=== PATIENT | female | born 1960 | race Caucasian/White ===

== ENCOUNTER 2016-11-08 13:16 | Observation (INO) | payer BC ==
[~2016-11-08] VITALS: Ht 165.1 cm; Wt 91.2 kg
--- NOTE | 2016-11-08 13:51 | EMERGENCY ROOM VISIT NOTE ---
History Report prepared by Ger: Delmar Hutchins Under the Supervision of: Dr. Jerald Whelan M.D. First contact with patient: 13:35 Chief Complaint: CHEST PAIN Stated Complaint: CHEST PAIN, HIGH BLOOD PRESSURE, REFERRED BY DOC Nursing Triage Summary: pt states she began having midsternal to epigastric pain on friday the pain has been intermittent today she notes increased burping with the pain notes no exacerbating factors or relieving factors ate today around 1100, pain was not worse after eating History of Present Illness The patient is a 56 year old female who presents to the Emergency Room with complaints of episodes of chest pain that started 4 days ago. She came here today after her second episode of chest pain. Her first episode was 4 days ago, and the pain is described as dull in the mid-chest, that radiates to her right shoulder and somewhat to her back. Currently, she says the pain is a 3 or 4 out of 10. She says the pain does not change with position. Yesterday, her face became more flushed and she had worsening hiccups. She denies any nausea or vomiting. The patient has hypertension and a history of migraines. She came in today after talking to a friend, and realizing that her condition is worse than she thought. She is allergic to Aspirin. The patient has no previous heart or lung issues. She does not drink alcohol and she does not smoke. The patient has had no recent surgeries. Source of History: patient Onset: 4 days ago Position: chest Quality: dull Timing: other (episodes) Associated Symptoms: + back pain, No nausea, No vomiting Note: Associated symptoms: Pain radiates to right shoulder. Face became more flushed yesterday and had worsening hiccups. Review of Systems See HPI for pertinent positives & negatives. A total of 10 systems reviewed and were otherwise negative. Past Medical & Surgical Medical Problems: (1) Hypertension Family History Diabetes mellitus FHx: cancer FHx: heart disease Social History Smoking Status: Never Smoker Alcohol Use: none Marital Status: Housing Status: lives with family Occupation Status: employed Current/Historical Medications Scheduled Losartan Potassium & Hydrochlo (Hyzaar), 1 TAB PO DAILY Nortriptyline (Pamelor), 20 MG PO HS Scheduled PRN Meloxicam (Meloxicam), 15 MG PO DAILY PRN for Pain Metoclopramide Hcl (Reglan), 5 MG PO DAILY PRN for PRN Allergies Coded Allergies: Aspirin (Verified Allergy, Unknown, 11/08/16) Physical Exam Vital Signs Date Time Temp Pulse Resp B/P Pulse Ox O2 Delivery O2 Flow Rate FiO2 11/08/16 16:21 96 18 143/86 96 Nasal Cannula 2.0 11/08/16 14:50 86 16 148/93 95 Nasal Cannula 2.0 11/08/16 14:33 88 Nasal Cannula 2.0 11/08/16 14:16 96 16 149/97 95 Room Air 11/08/16 14:11 96 18 188/96 94 Room Air 11/08/16 14:04 91 20 173/106 95 Room Air 11/08/16 13:46 96 11/08/16 13:39 96 Room Air 11/08/16 13:33 95 Room Air 11/08/16 13:24 36.8 92 18 206/122 98 Room Air Physical Exam GENERAL: Patient is anxious appearing and in no acute distress. HEENT: No acute trauma, normocephalic atraumatic, mucous membranes moist, no nasal congestion, no scleral icterus. NECK: No stridor, no adenopathy, no meningismus, trachea is midline. LUNGS: No dyspnea. Clear to auscultation and equal bilaterally. No wheeze, no rhonchi. HEART: Regular rate and rhythm. No murmurs, rubs, gallops appreciated. ABDOMEN: Soft, nontender, bowel sounds positive, no masses appreciated, no peritonitis. BACK: No midline tenderness, no CVA tenderness EXTREMITIES: Normal motion all extremities, no cyanosis, no edema. 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 SKIN: No rash, no jaundice, no diaphoresis. Medical Decision & Procedures ER Provider Diagnostic Interpretation: X ray results are stated below per my interpretation and the radiologist's interpretation. CHEST ONE VIEW PORTABLE HISTORY: Atypical Chest Pain COMPARISON: None. FINDINGS: There are low lung volumes. No pleural effusions. No pneumothorax. The heart is normal in size. Bibasilar linear densities, left greater than right. IMPRESSION: Low lung volumes with bibasilar linear densities left greater than right. This could represent atelectasis or pneumonia. Electronically signed by: Gilbert Burgess M.D. 11/08/2016 3:01 PM Dictated Date/Time: 11/08/2016 3:00 PM Laboratory Results 11/08/16 13:45 Red Blood Count 4.94, Mean Corpuscular Volume 82.0, Mean Corpuscular Hemoglobin 27.3, Mean Corpuscular Hemoglobin Concent 33.3, Mean Platelet Volume 10.5, Neutrophils (%) (Auto) 65.6, Lymphocytes (%) (Auto) 22.6, Monocytes (%) (Auto) 9.1, Eosinophils (%) (Auto) 2.0, Basophils (%) (Auto) 0.5, Neutrophils # (Auto) 3.89, Lymphocytes # (Auto) 1.34, Monocytes # (Auto) 0.54, Eosinophils # (Auto) 0.12, Basophils # (Auto) 0.03 11/08/16 13:45 Test 11/08/16 13:45 White Blood Count 5.93 K/uL (4.8-10.8) Red Blood Count 4.94 M/uL (4.2-5.4) Hemoglobin 13.5 g/dL (12.0-16.0) Hematocrit 40.5 % (37-47) Mean Corpuscular Volume 82.0 fL (80-100) Mean Corpuscular Hemoglobin 27.3 pg (25-34) Mean Corpuscular Hemoglobin Concent 33.3 g/dl (32-36) Platelet Count 206 K/uL (130-400) Mean Platelet Volume 10.5 fL (7.4-10.4) Neutrophils (%) (Auto) 65.6 % Lymphocytes (%) (Auto) 22.6 % Monocytes (%) (Auto) 9.1 % Eosinophils (%) (Auto) 2.0 % Basophils (%) (Auto) 0.5 % Neutrophils # (Auto) 3.89 K/uL (1.4-6.5) Lymphocytes # (Auto) 1.34 K/uL (1.2-3.4) Monocytes # (Auto) 0.54 K/uL (0.11-0.59) Eosinophils # (Auto) 0.12 K/uL (0-0.5) Basophils # (Auto) 0.03 K/uL (0-0.2) RDW Standard Deviation 39.6 fL (36.4-46.3) RDW Coefficient of Variation 13.2 % (11.5-14.5) Immature Granulocyte % (Auto) 0.2 % Immature Granulocyte # (Auto) 0.01 K/uL (0.00-0.02) Anion Gap 8.0 mmol/L (3-11) Est Creatinine Clear Calc Drug Dose 76.7 ml/min Estimated GFR () 77.2 Estimated GFR (Non- 66.6 BUN/Creatinine Ratio 28.3 (10-20) Calcium Level 9.1 mg/dl (8.5-10.1) Total Bilirubin 0.3 mg/dl (0.2-1) Direct Bilirubin < 0.1 mg/dl (0-0.2) Aspartate Amino Transf (AST/SGOT) 18 U/L (15-37) Alanine Aminotransferase (ALT/SGPT) 28 U/L (12-78) Alkaline Phosphatase 77 U/L (45-117) Total Creatine Kinase 76 U/L (26-192) Creatine Kinase MB 0.6 ng/ml (0.5-3.6) Creatine Kinase MB Ratio 0.8 (0-3.0) Troponin I < 0.015 ng/ml (0-0.045) Total Protein 7.6 gm/dl (6.4-8.2) Albumin 3.7 gm/dl (3.4-5.0) Lipase 175 U/L (73-393) Laboratory results as reviewed by me. Medications Administered Medications (Trade) Dose Ordered Sig/Di Route Start Time Stop Time Status Last Admin Dose Admin Nitroglycerin (Nitrostat Tab) 0.4 mg NOW STAT SL 11/08/16 14:05 11/08/16 14:07 DC 11/08/16 14:11 0.4 MG Fentanyl Citrate (Fentanyl Inj) 75 mcg NOW STAT IV 11/08/16 14:17 11/08/16 14:18 DC 11/08/16 14:22 75 MCG ECG Indication: chest pain Rate (beats per minute): 100 Rhythm: normal sinus Findings: no acute ischemic change, no ectopy ED Course 1409: The patient was evaluated in room B11B. A complete history and physical exam was performed. 1405: Ordered Nitrostat Tab 0.4 mg SL. 1415: Ordered Nitrostat Tab 0.4 mg SL PRN. 1417: Ordered Fentanyl Inj 75 mcg IV. 1419: I reevaluated the patient and she got 1 nitro. She has a severe headache now. 1510: I reevaluated the patient and I gave her the option of being seen in the hospital or doing a repeat troponin, and she would like to have the repeat troponin and if normal, would like to go home. I discussed the pros and cons with her and she is aware. She notes that her chest pain is gone after the IV Fentanyl. 1624: I reevaluated the patient and she is resting comfortably. The patient verbally expressed understanding and agreement of the treatment plan. The patient will be evaluated for further treatment. 1625: I discussed the patient with Dr. Talita Alexis radiotelegraph operator servicer - he will evaluate the patient for further treatment. Medical Decision Differential: Cardiac Ischemia (STEMI, NSTEMI, Unstable Angina, etc), Aortic Dissection, Arrhythmia, Pulmonary Embolism, Pneumonia, Pneumothorax, MSK, Infectious, Pericarditis/Myocarditis, Esophageal Rupture, Gastrointestinal, amongst other pathologies entertained. 56 yr old female with substernal chest pressure radiating to right shoulder. Unclear if SLNTG or Fentanyl (for ntg headache) resolved CP though now CP free. Allergic to ASA. Initial EKG and Trop unremarkable. Repeat trop still wnl though now not zero. Given this will need to bring in hospital for further evaluation and monitoring. She is pain free. No evidence of PE/dissection. Consults Time Called: 1619 Consulting Physician: Dr. Talita Alexis radiotelegraph operator servicer Returned Call: [phone] I discussed the patient with Dr. Talita Alexis radiotelegraph operator servicer - he will evaluate the patient for further treatment. Impression Primary Impression: Right-sided chest pain Additional Impressions: Substernal precordial chest pain Headache Scribe Attestation The scribe's documentation has been prepared under my direction and personally reviewed by me in its entirety. I confirm that the note above accurately reflects all work, treatment, procedures, and medical decision making performed by me. Departure Information Dispostion Being Evaluated By Hospitalist Patient Instructions Chest Pain - [facility], [facility] Additional Instructions You must follow up with your primary provider on Friday or Friday to discuss further evaluation and treatment. Problem Qualifiers Additional Impressions: Headache Headache type: unspecified Headache chronicity pattern: acute headache Intractability: not intractable Qualified Codes: R51 - Headache
[2016-11-08] MEDS ORDERED: NITROGLYCERIN 0.4 MG SL PER TAB CHARGE SL STA (14:05)
[2016-11-08] MEDS ORDERED: NITROGLYCERIN 0.4 MG SL PER TAB CHARGE SL PRN ×2 (14:15→18:00)
[2016-11-08] MEDS ORDERED: FENTANYL CITRATE INJ 50 MCG/1 ML 2 ML VIAL IV STA (14:17)
[2016-11-08 14:19] LABS: BASO % 0.5 %; BASO ABS # 0.03 K/uL (0-0.2); COMPLETE YES; HEMATOCRIT 40.5 % (37-47); IG% 0.2 %; LYMPH % 22.6 %; LYMPH ABS # 1.34 K/uL (1.2-3.4); MEAN CORPUSCULAR HEMOGLOBIN 27.3 pg (25-34); MEAN CORPUSCULAR HGB CONC 33.3 g/dl (32-36); MEAN PLATELET VOLUME 10.5 fL (7.4-10.4); MONO % 9.1 %; NEUT % 65.6 %; PLATELET COUNT 206 K/uL (130-400); RED BLOOD COUNT 4.94 M/uL (4.2-5.4); WHITE BLOOD COUNT 5.93 K/uL (4.8-10.8)
[2016-11-08 14:37] LABS: ALT/SGPT 28 U/L (12-78); BLOOD UREA NITROGEN 27 mg/dl (7-18); BUN/CREATININE RATIO 28.3 (10-20); CALCIUM 9.1 mg/dl (8.5-10.1); CARBON DIOXIDE 28 mmol/L (21-32); CHLORIDE 106 mmol/L (98-107); CREATININE 0.96 mg/dl (0.60-1.20); GLUCOSE 98 mg/dl (70-99); POTASSIUM 3.6 mmol/L (3.5-5.1); SODIUM 142 mmol/L (136-145)
[2016-11-08] MEDS ORDERED: METO1TAB54 PO (14:39)
[2016-11-08] MEDS ORDERED: LOSA100T2 PO (14:39)
[2016-11-08] MEDS ORDERED: MELO15TA4 PO (14:39)
[2016-11-08] MEDS ORDERED: NORT10CA2 PO (14:39)
[2016-11-08 14:41] LABS: ALKALINE PHOSPHATASE 77 U/L (45-117); AST/SGOT 18 U/L (15-37); CKMB/CK RATIO 0.8 (0-3.0)
--- NOTE | 2016-11-08 15:03 | DIAGNOSTIC IMAGING REPORT ---
CHEST ONE VIEW PORTABLE HISTORY: Atypical Chest Pain COMPARISON: None. FINDINGS: There are low lung volumes. No pleural effusions. No pneumothorax. The heart is normal in size. Bibasilar linear densities, left greater than right. IMPRESSION: Low lung volumes with bibasilar linear densities left greater than right. This could represent atelectasis or pneumonia. Electronically signed by: Gilbert Burgess M.D. 11/08/2016 3:01 PM Dictated Date/Time: 11/08/2016 3:00 PM
[2016-11-08] MEDS ORDERED: ONDANSETRON INJ 2 MG/ML 2 ML VIAL IV PRN (18:00)
[2016-11-08] MEDS ORDERED: ACETAMINOPHEN 325 MG TAB PO PRN (18:00)
[2016-11-08] MEDS ORDERED: METOCLOPRAMIDE HCL 5 MG TAB PO PRN (18:00)
--- NOTE | 2016-11-08 18:54 | History and Physical ---
History & Physical Date & Time of Service: Nov 08, 2016 at 17:55 Chief Complaint: Chest Pain, High Blood Pressure, Referred By Doc Primary Care Physician: Brock Roque M.D. History of Present Illness Source: patient, clinic records This is a 56 year old female with PMH of HTN and migraine headaches who presents to the ED for chest pain. Patient states chest pain started 4 days ago while sitting at work. She reports vague substernal chest discomfort with radiation to right shoulder blade. The pain resolved spontaneously within a few minutes. Then today around 10 am patient developed hiccups and recurrent similar chest pain also radiating to right shoulder blade. With this episode she had facial flushing. The chest pain was constant but gradually improving for a few hours. The pain was not related to exertion or position. She was seen at [facility], was found to be hypertensive to 170s systolic, and was sent to the ER. She was treated with a Nitrostat tab and is now chest pain free. She developed headache after nitro which improved with Fentanyl. On arrival to the ER her BP was high as 206/122. Nitro tab was given with improvement to 140s-> 170s. Pt states her BP runs 150s systolic at wellness checks at work every 2 wks. In clinic in February 2016 her BP was 160s systolic. She has been compliant with losartan-HCTZ which she took this morning. Pt reports occasional palpitations but did not experience them today. She denies diaphoresis, dizziness, vision change, acute focal weakness or numbness, URI, cough, SOB, reflux, abdominal pain, nausea, vomiting, edema, calf pain, anxiety , heavy lifting. Pt denies history of cardiac disorder, HL, DM. She does not recall having an echo or stress test in the past. She admits to eating fast foods but does not add salt when cooking. No recent travel. 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 (2) Hypertension Status: Chronic (3) Migraine Status: Chronic Surgical Problems: (1) History of hysterectomy Status: Chronic (2) S/P section Status: Chronic (3) S/P tonsillectomy and adenoidectomy Status: Chronic (4) S/P tubal ligation Status: Chronic Family History Diabetes mellitus FHx: cancer FHx: heart disease GREAT AUNT Hypertension MOTHER Stroke GRANDMOTHER Social History Smoking Status: Never Smoker Alcohol Use: none Drug Use: none Marital Status: Housing status: lives with significant other Occupational Status: employed Multi-Drug Resistant Organisms History of MDRO: No Allergies Coded Allergies: Aspirin (Verified Allergy, Unknown, 11/08/16) Home Medications Scheduled Losartan Potassium & Hydrochlo (Hyzaar), 1 TAB PO DAILY Meloxicam (Meloxicam), 15 MG PO DAILY Nortriptyline (Pamelor), 20 MG PO HS Scheduled PRN Metoclopramide Hcl (Reglan), 5 MG PO DAILY PRN for PRN Review of Systems Constitutional: No sweats Eyes: + problem reported (photophobia with her headache today. has visual aura with migraines but none today. ), No diplopia, No worsening of vision ENT: No nasal symptoms Respiratory: No cough, No shortness of breath Cardiovascular: + chest pain, + palpitations (occasional palpitations. also occasionally feels heart beat in head when she lies down. ), No edema Abdomen: + diarrhea (occasional diarrhea. no change in bowels. ), No GI bleeding, No nausea, No pain, No vomiting Musculoskeletal: No calf pain Genitourinary - Female: No dysuria, No urinary frequency Neurologic: + problem reported (no acute numbness/ weakness. has chronic right facial droop from h/o Julian Palsy. chronic daily migraines. ) Psychiatric: No anxiety Hematologic / Lymphatic: No abnormal bleeding/bruising Integumentary: No rash Physical Exam Vital Signs Date Time Temp Pulse Resp B/P Pulse Ox O2 Delivery O2 Flow Rate FiO2 11/08/16 16:21 96 18 143/86 96 Nasal Cannula 2.0 11/08/16 14:50 86 16 148/93 95 Nasal Cannula 2.0 11/08/16 14:33 88 Nasal Cannula 2.0 11/08/16 14:16 96 16 149/97 95 Room Air 11/08/16 14:11 96 18 188/96 94 Room Air 11/08/16 14:04 91 20 173/106 95 Room Air 11/08/16 13:46 96 11/08/16 13:39 96 Room Air 11/08/16 13:33 95 Room Air 11/08/16 13:24 36.8 92 18 206/122 98 Room Air General Appearance: WD/WN, no apparent distress, + pertinent finding (alert cooperative 56 y/o female) Head: normocephalic, atraumatic Eyes: normal inspection, PERRL, EOMI ENT: hearing grossly normal, pharynx normal Neck: supple, no JVD, trachea midline Respiratory/Chest: chest non-tender, lungs clear, normal breath sounds, no respiratory distress, no accessory muscle use Cardiovascular: regular rate, rhythm, no murmur, normal peripheral pulses Abdomen/GI: normal bowel sounds, non tender, soft Extremities/Musculoskelatal: no calf tenderness, normal capillary refill, + pertinent finding (trace swelling of bilateral ankles- chronic per patient) Neurologic/Psych: alert, normal mood/affect, oriented x 3, + pertinent finding (right sided facial droop- chronic per patient as residual effect of Julian palsy. no dysarthria. no motor/ sensory deficit of the extremities.) Skin: normal color, warm/dry, no rash (no rash on the chest) Diagnostics Laboratory Results Results Past 24 Hours Test 11/08/16 13:45 Range/Units White Blood Count 5.93 4.8-10.8 K/uL Red Blood Count 4.94 4.2-5.4 M/uL Hemoglobin 13.5 12.0-16.0 g/dL Hematocrit 40.5 37-47 % Mean Corpuscular Volume 82.0 80-100 fL Mean Corpuscular Hemoglobin 27.3 25-34 pg Mean Corpuscular Hemoglobin Concent 33.3 32-36 g/dl Platelet Count 206 130-400 K/uL Mean Platelet Volume 10.5 7.4-10.4 fL Neutrophils (%) (Auto) 65.6 % Lymphocytes (%) (Auto) 22.6 % Monocytes (%) (Auto) 9.1 % Eosinophils (%) (Auto) 2.0 % Basophils (%) (Auto) 0.5 % Neutrophils # (Auto) 3.89 1.4-6.5 K/uL Lymphocytes # (Auto) 1.34 1.2-3.4 K/uL Monocytes # (Auto) 0.54 0.11-0.59 K/uL Eosinophils # (Auto) 0.12 0-0.5 K/uL Basophils # (Auto) 0.03 0-0.2 K/uL RDW Standard Deviation 39.6 36.4-46.3 fL RDW Coefficient of Variation 13.2 11.5-14.5 % Immature Granulocyte % (Auto) 0.2 % Immature Granulocyte # (Auto) 0.01 0.00-0.02 K/uL Sodium Level 142 136-145 mmol/L Potassium Level 3.6 3.5-5.1 mmol/L Chloride Level 106 98-107 mmol/L Carbon Dioxide Level 28 21-32 mmol/L Anion Gap 8.0 3-11 mmol/L Blood Urea Nitrogen 27 7-18 mg/dl Creatinine 0.96 0.60-1.20 mg/dl Est Creatinine Clear Calc Drug Dose 76.7 ml/min Estimated GFR () 77.2 Estimated GFR (Non- 66.6 BUN/Creatinine Ratio 28.3 10-20 Random Glucose 98 70-99 mg/dl Calcium Level 9.1 8.5-10.1 mg/dl Total Bilirubin 0.3 0.2-1 mg/dl Direct Bilirubin < 0.1 0-0.2 mg/dl Aspartate Amino Transf (AST/SGOT) 18 15-37 U/L Alanine Aminotransferase (ALT/SGPT) 28 12-78 U/L Alkaline Phosphatase 77 45-117 U/L Total Creatine Kinase 76 26-192 U/L Creatine Kinase MB 0.6 0.5-3.6 ng/ml Creatine Kinase MB Ratio 0.8 0-3.0 Troponin I < 0.015 0-0.045 ng/ml Total Protein 7.6 6.4-8.2 gm/dl Albumin 3.7 3.4-5.0 gm/dl Lipase 175 73-393 U/L Diagnostic Radiology CHEST ONE VIEW PORTABLE HISTORY: Atypical Chest Pain COMPARISON: None. FINDINGS: There are low lung volumes. No pleural effusions. No pneumothorax. The heart is normal in size. Bibasilar linear densities, left greater than right. IMPRESSION: Low lung volumes with bibasilar linear densities left greater than right. This could represent atelectasis or pneumonia. EKG NSR, 100 bpm, LAD, possible LVH, no ST or T wave abnormalities Impression Assessment and Plan CHEST PAIN R/o ACS- risk factor includes hypertension May be due to hypertensive urgency (initial BP up to 200s/120s) Currently chest pain free after nitro tab given in ER Initial troponin <0.015, repeat POC troponin was 0.01 at 15:18 EKG- NSR, no acute ischemic findings CXR- L>R basilar densities representing atelectasis vs. pneumonia Did not receive aspirin; hx adverse rxn to aspirin- stomach upset per patient Trend serial cardiac enzymes PRN nitroglycerin Check fasting lipid panel in am Repeat EKG in am HYPERTENSIVE URGENCY BP elevated to 200s/120s in ER Given nitro tab; improved to 140s -> 170s May have underlying uncontrolled BP; appears to run high in clinic in February 2016 Continue the Losartan-HCTZ Add metoprolol tartrate 25 mg BID Discussed with patient about decreasing sodium in the diet MIGRAINES Continue nortriptyline and PRN Reglan DVT PROPHYLAXIS Lovenox SQ DISPOSITION Observation to telemetry Follows with Dr. Roque for primary care Patient seen in collaboration with Dr. Sanon. Please see his addendum. VTE Prophylaxis VTE Risk Assessment Done? Y/N: Yes Risk Level: Low Note ATTENDING ADDENDUM Record reviewed. Patient interviewed and examined. Care coordinated with Karuna Montes PA-C. Please refer to her documentation for patient's history. 56 YO F with history of hypertension. Presented to ED with atypical chest pain. BP's elevated in ED. EXAM: General- no distress VS- as noted Neck- no JVD Lungs- clear Heart- RRR, S4, no S3 Abdomen- + BS, soft, nontender Extremities- no pretibial edema or calf tenderness Neuro- alert; right Sharma's palsy DATA: CPK < 0.015. Other lab studies as noted. Chest x-ray demonstrated probable bibasilar atelectasis. EKG performed at 13:21 reviewed and demonstrated NSR at 100 / min, flattened / inverted T-waves aVL. ASSESSMENT AND PLAN: Atypical chest pain. Elevated BP's. Check serial cardiac markers. Continue Hyzaar. Add metoprolol tartrate 25 mg BID. No aspirin due to GI intolerance. Start clopidogrel if cardiac markers rise or clinical status changes. Consider outpatient stress testing. Please refer to JEREMIAS Montes's documentation for discussion of other issues. David Sanon MD .
[2016-11-08 18:56] VITALS: BP 174/116; PULSE 81; TEMP 36.7; O2SAT 93; Ht 165.1 cm; Wt 91.2 kg
[2016-11-08 19:37] LABS: INR 0.9 (0.9-1.1)
[2016-11-08 20:00] VITALS: O2SAT 93
[2016-11-08] MEDS ORDERED: METOPROLOL TARTRATE 1 MG/ML VIAL IV ONE (21:00)
[2016-11-08 21:22] LABS: CKMB/CK RATIO 1.2 (0-3.0)
[2016-11-08] MEDS: METOPROLOL TARTRATE 25 MG TAB PO SCH (21:49)
[2016-11-08] MEDS: NORTRIPTYLINE HCL 10 MG CAP PO SCH (21:52)
[2016-11-08] MEDS: ENOXAPARIN 40 MG/0.4 ML SYR SC SCH (22:26)
[2016-11-08] MEDS ORDERED: IV FLUIDS COMPLETED PRN (23:15)
[2016-11-08 23:43] VITALS: BP 141/89; PULSE 73; TEMP 36.9; O2SAT 94
[2016-11-09 03:03] LABS: CKMB/CK RATIO 1.3 (0-3.0)
[2016-11-09 04:30] VITALS: BP 164/95; PULSE 64; TEMP 36.5; O2SAT 95
[2016-11-09 07:07] VITALS: BP 156/91; PULSE 70; TEMP 36.6; O2SAT 96
[2016-11-09] MEDS: METOPROLOL TARTRATE 25 MG TAB PO SCH ×2 (07:44→20:55)
--- NOTE | 2016-11-09 08:34 | Progress Note ---
Internal Med Progress Note Date of Service: Nov 09, 2016. Provider Documentation: SUBJECTIVE: Patient is seen and examined at bedside. Patient reports having persistent mild retrosternal chest pain. Denies any SOB, palpitations, diaphoresis, nausea, dizziness, cough, fever, chills. OBJECTIVE: Vital Signs-as noted below Physical Exam: General Appearance:Moderately built and nourished, no apparent distress Head: normocephalic, Atraumatic Eyes: normal inspection, EOMI, PERRLA Neck: supple, Trachea midline Respiratory/Chest: Normal breath sounds, CTA, No accessory muscle use Cardiovascular: S1, S2, No murmur Abdomen/GI:Soft, Non tender, Bowel sounds present Extremities/Musculoskelatal:normal inspection, chronic ankle edema. Neurologic/Psych:AAOX3, grossly no focal neurological deficits +Right facial droop Skin: normal color, warm Lab data as noted below. ASSESSMENT & PLAN: CHEST PAIN R/o ACS Risk factor: Hypertension Presents with chest pain which improved with nitro tab in ER Likely secondary to hypertensive urgency Troponin: X 3: Negative EKG: no acute ischemic findings CXR:Likely atelectasis vs. 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 Roque for primary care Await for cardiology input Vital Signs: Date Time Temp Pulse Resp B/P Pulse Ox O2 Delivery O2 Flow Rate FiO2 11/09/16 07:07 36.6 70 20 156/91 96 Room Air 11/09/16 04:30 36.5 64 16 164/95 95 Room Air 11/08/16 23:43 36.9 73 18 141/89 94 Room Air 11/08/16 21:24 83 176/99 11/08/16 20:00 93 Room Air 11/08/16 18:56 36.7 81 18 174/116 93 Room Air 11/08/16 18:11 86 12 94 11/08/16 18:06 87 19 93 2/17/17 18:01 90 20 93 2/17/17 17:58 172/96 2/17/17 17:56 90 15 93 2/17/17 17:51 86 14 92 2/17/17 17:46 90 16 93 2/17/17 17:41 87 14 93 2/17/17 17:36 90 18 93 2/17/17 17:31 90 24 94 2/17/17 17:28 173/103 2/17/17 17:26 94 20 94 2/17/17 17:21 93 15 94 2/17/17 17:16 87 15 93 2/17/17 17:11 87 15 94 2/17/17 17:06 91 14 93 2/17/17 17:01 88 18 93 2/17/17 16:58 154/89 2/17/17 16:56 87 12 94 2/17/17 16:51 89 16 94 2/17/17 16:46 96 21 95 2/17/17 16:41 91 16 94 2/17/17 16:36 91 15 93 2/17/17 16:32 153/95 2/17/17 16:21 91 25 93 2/17/17 16:21 96 18 143/86 96 Nasal Cannula 2.0 2/17/17 16:16 81 18 93 2/17/17 16:11 85 13 92 2/17/17 16:06 84 15 93 2/17/17 16:01 82 14 93 2/17/17 15:58 143/86 2/17/17 15:56 83 14 95 2/17/17 15:51 82 13 95 2/17/17 15:46 85 12 94 2/17/17 15:41 81 15 93 2/17/17 15:36 81 15 93 2/17/17 15:31 83 13 93 2/17/17 15:28 143/87 2/17/17 15:26 87 13 93 2/17/17 15:21 91 13 94 2/17/17 15:16 86 17 151/87 94 2/17/17 15:13 158/92 2/17/17 15:11 86 13 94 2/17/17 15:06 86 11 96 2/17/17 15:01 86 12 96 2/17/17 14:58 139/92 2/17/17 14:56 86 10 96 2/17/17 14:51 85 12 95 11/08/16 14:50 86 16 148/93 95 Nasal Cannula 2.0 11/08/16 14:46 94 18 96 11/08/16 14:43 148/93 11/08/16 14:41 95 16 97 11/08/16 14:36 94 16 94 11/08/16 14:33 88 Nasal Cannula 2.0 11/08/16 14:31 92 12 161/95 88 11/08/16 14:28 161/95 11/08/16 14:26 92 19 90 11/08/16 14:23 154/93 11/08/16 14:21 101 16 91 11/08/16 14:18 159/86 11/08/16 14:16 96 16 149/97 95 Room Air 11/08/16 14:16 100 15 92 11/08/16 14:13 149/97 11/08/16 14:11 92 20 94 11/08/16 14:11 96 18 188/96 94 Room Air 11/08/16 14:09 188/96 11/08/16 14:06 94 17 92 11/08/16 14:04 91 20 173/106 95 Room Air 11/08/16 14:01 90 20 93 11/08/16 13:58 173/106 11/08/16 13:56 89 14 92 11/08/16 13:51 94 16 94 11/08/16 13:47 192/96 11/08/16 13:46 96 11/08/16 13:46 95 23 93 11/08/16 13:39 169/104 11/08/16 13:39 96 Room Air 11/08/16 13:33 95 Room Air 11/08/16 13:24 36.8 92 18 206/122 98 Room Air Lab Results: Results Past 24 Hours Test 11/08/16 13:45 11/08/16 20:26 11/09/16 02:34 11/09/16 05:30 Range/Units White Blood Count 5.93 4.8-10.8 K/uL Red Blood Count 4.94 4.2-5.4 M/uL Hemoglobin 13.5 12.0-16.0 g/dL Hematocrit 40.5 37-47 % Mean Corpuscular Volume 82.0 80-100 fL Mean Corpuscular Hemoglobin 27.3 25-34 pg Mean Corpuscular Hemoglobin Concent 33.3 32-36 g/dl Platelet Count 206 130-400 K/uL Mean Platelet Volume 10.5 7.4-10.4 fL Neutrophils (%) (Auto) 65.6 % Lymphocytes (%) (Auto) 22.6 % Monocytes (%) (Auto) 9.1 % Eosinophils (%) (Auto) 2.0 % Basophils (%) (Auto) 0.5 % Neutrophils # (Auto) 3.89 1.4-6.5 K/uL Lymphocytes # (Auto) 1.34 1.2-3.4 K/uL Monocytes # (Auto) 0.54 0.11-0.59 K/uL Eosinophils # (Auto) 0.12 0-0.5 K/uL Basophils # (Auto) 0.03 0-0.2 K/uL RDW Standard Deviation 39.6 36.4-46.3 fL RDW Coefficient of Variation 13.2 11.5-14.5 % Immature Granulocyte % (Auto) 0.2 % Immature Granulocyte # (Auto) 0.01 0.00-0.02 K/uL Prothrombin Time 10.0 9.0-12.0 SECONDS Prothromb Time International Ratio 0.9 0.9-1.1 Sodium Level 142 136-145 mmol/L Potassium Level 3.6 3.5-5.1 mmol/L Chloride Level 106 98-107 mmol/L Carbon Dioxide Level 28 21-32 mmol/L Anion Gap 8.0 3-11 mmol/L Blood Urea Nitrogen 27 7-18 mg/dl Creatinine 0.96 0.60-1.20 mg/dl Est Creatinine Clear Calc Drug Dose 76.7 ml/min Estimated GFR () 77.2 Estimated GFR (Non- 66.6 BUN/Creatinine Ratio 28.3 10-20 Random Glucose 98 70-99 mg/dl Calcium Level 9.1 8.5-10.1 mg/dl Total Bilirubin 0.3 0.2-1 mg/dl Direct Bilirubin < 0.1 0-0.2 mg/dl Aspartate Amino Transf (AST/SGOT) 18 15-37 U/L Alanine Aminotransferase (ALT/SGPT) 28 12-78 U/L Alkaline Phosphatase 77 45-117 U/L Total Creatine Kinase 76 58 55 26-192 U/L Creatine Kinase MB 0.6 0.7 0.7 0.5-3.6 ng/ml Creatine Kinase MB Ratio 0.8 1.2 1.3 0-3.0 Troponin I < 0.015 < 0.015 < 0.015 0-0.045 ng/ml Total Protein 7.6 6.4-8.2 gm/dl Albumin 3.7 3.4-5.0 gm/dl Lipase 175 73-393 U/L Hepatitis C Antibody Screen NEG NEG Triglycerides Level 109 0-150 mg/dl Cholesterol Level 162 0-200 mg/dl HDL Cholesterol 54 mg/dl LDL Cholesterol, Calculated 86 mg/dl VLDL Cholesterol, Calculated 22 mg/dl Cholesterol/HDL Ratio 3.0
[2016-11-09] MEDS ORDERED: LOSARTAN/HCTZ 50-12.5 EA TAB PO SCH (09:00)
[2016-11-09 12:24] VITALS: BP 153/92; PULSE 63; TEMP 36.7; O2SAT 94
--- NOTE | 2016-11-09 15:37 | Cardiology Consultation ---
Cardiology Consultation Date of Consultation: Nov 09, 2016 History of Present Illness Bridgette Pinto is a 56-year-old female seen in cardiology consultation per the request of Dr Leal for the evaluation of hypertension and chest discomfort. She had a transient episode of chest discomfort several days ago at work. Yesterday she developed significant's with associated midline chest discomfort that radiated to the right shoulder blade. She had her blood pressure taken at an urgent care center and was elevated. Blood pressure on arrival to the emergency department yesterday was 206/122. She received nitroglycerin glycerin with improvement in her blood pressure but she did have an associated headache. Her blood pressure had improved transiently, then come back up to the 174/1 16 mmHg, and most recently he has been 153/92. She has a history of hypertension and is on losartan/hydrochlorothiazide. Recently she has had her blood pressure monitored by the wellness nurse at her place of employment and she has had a systolic blood pressure in the 150 mmHg range. Due to concern of hypertension as well as patient complaint of palpitations, metoprolol tartrate has been added to her medications overnight. Her heart rate and blood pressure have since improved but has noted her blood pressure still little bit above goal. Currently she is visiting with her family. She is in no acute distress but still notes a vague mild midline chest discomfort. EKG revealed only mild nonspecific changes. Cardiac enzymes of been negative thus far. History PAST MEDICAL HISTORY: 1. Hypertension 2. Migraine headache syndrome 3. Arthritis for which she takes meloxicam 4. History of Sharma's palsy PAST SURGICAL HISTORY: 1. Hysterectomy 2. section 3. Tonsillectomy 4. Tubal ligation FAMILY HISTORY: Family history of heart disease in her aunt, details unknown SOCIAL HISTORY: She is a lifelong nonsmoker. She is . She lives with her spouse. 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 Review Of Systems See above for pertinent positives & negatives. A total of 10 systems reviewed and were otherwise negative. Allergies Coded Allergies: Aspirin (Verified Allergy, Unknown, 11/08/16) Medications Reported Home Medications Medications Dose Route/Sig Max Daily Dose Days Date Category Dose Instructions Reglan (Metoclopramide Hcl) 5 Mg Tab 5 Mg PO DAILY PRN 11/08/16 Reported Take 5 mg PO when aura of migraine starts to prevent headache. Pamelor (Nortriptyline HCl) 10 Mg Cap 20 Mg PO HS 11/08/16 Reported Hyzaar (Losartan Potassium & Hydrochlo) 1 Tab Tab 1 Tab PO DAILY 11/08/16 Reported 50/12.5MG Meloxicam 15 Mg Tab 15 Mg PO DAILY 11/08/16 Reported Physical Exam Vital Signs (Last 8hrs): Last 8 Hrs Date Time Temp Pulse Resp B/P Pulse Ox O2 Delivery O2 Flow Rate FiO2 11/09/16 12:45 Room Air 11/09/16 12:24 36.7 63 16 153/92 94 Room Air 11/09/16 08:45 Room Air General Appearance: Alert and Oriented x3. NAD. Head: Normocephalic Atraumatic. Eyes: PERRLA, EOMI, conjunctiva and sclera clear Neck: Supple. No carotid bruits noted. No JVD. No HJD. Respiratory: Breath sounds clear to auscultation bilaterally. No w/r/r. Cardiovascular: Reg rate and rhythm. S1 and S2 noted. No murmurs, rubs, gallops. PMI non displace. Abdomen: Normal bowel sounds, soft nontender. no abdominal bruits. Extremities: No edema, no clubbing or cyanosis. distal pulses 2/4 bilaterally. Neuro: No focal deficits. Psychiatric: Normal affect. Data Last 24 Hours Test 11/08/16 20:26 11/09/16 02:34 11/09/16 05:30 Total Creatine Kinase 58 U/L 55 U/L Creatine Kinase MB 0.7 ng/ml 0.7 ng/ml Creatine Kinase MB Ratio 1.2 1.3 Troponin I < 0.015 ng/ml < 0.015 ng/ml Triglycerides Level 109 mg/dl Cholesterol Level 162 mg/dl HDL Cholesterol 54 mg/dl LDL Cholesterol, Calculated 86 mg/dl VLDL Cholesterol, Calculated 22 mg/dl Cholesterol/HDL Ratio 3.0 Initial EKG performed in every 2016 reveals sinus tachycardia 100 bpm with no significant ST changes. Repeat EKG or reveals sinus rhythm with improvement in heart rate, no significant ST changes. Telemetry reviewed: Sinus rhythm Assessment & Plan Impression: 1. Hypertension with hypertensive urgency 2. Chest discomfort, somewhat atypical for angina Plan: Continue to monitor patient on telemetry. Agree with current medications including addition of metoprolol. Anticipate need for stress testing at some point, but not today given her issues with ongoing hypertension. Roselia Martinez DO
[2016-11-09 15:45] VITALS: BP 162/103; PULSE 71; TEMP 36.5; O2SAT 91
[2016-11-09 19:46] VITALS: BP 114/67; PULSE 67; TEMP 36.6; O2SAT 92
[2016-11-09] MEDS ORDERED: MoRPHine SULFATE 2 MG/ML CARP IV PRN (20:15)
[2016-11-09] MEDS ORDERED: TRAMADOL HCL 50 MG TAB ONE (20:50)
[2016-11-09] MEDS: NORTRIPTYLINE HCL 10 MG CAP PO SCH (20:56)
[2016-11-09] MEDS: ENOXAPARIN 40 MG/0.4 ML SYR SC SCH (20:57)
[2016-11-09 21:02] VITALS: BP 142/86; PULSE 75
--- NOTE | 2016-11-09 22:26 | DIAGNOSTIC IMAGING REPORT ---
HEAD CT NONCONTRAST CT DOSE: 623.48 mGy.cm HISTORY: Headache. TECHNIQUE: Multiaxial CT images of the head were performed without the use of intravenous contrast. Automated exposure control was utilized for this study. Comparison: None. Findings: The paranasal sinuses and mastoid air cells are clear. The calvarium and skull base are intact. The ventricles and sulci are within normal limits. There is no mass, hematoma, midline shift, or acute infarct. Impression: No acute intracranial abnormality. Electronically signed by: Gilbert Burgess M.D. 11/09/2016 10:25 PM Dictated Date/Time: 11/09/2016 10:20 PM
[2016-11-10] VITALS (9 sets, daily range): BP systolic 146–180; BP diastolic 85–101; PULSE 58–79; TEMP 36.3–36.7; O2SAT 92–95
[2016-11-10] MEDS: TRAMADOL HCL 50 MG TAB PO PRN (05:17)
[2016-11-10 07:05] LABS: BUN/CREATININE RATIO 19.9 (10-20); CALCIUM 8.9 mg/dl (8.5-10.1); POTASSIUM 3.8 mmol/L (3.5-5.1)
[2016-11-10] MEDS: LOSARTAN POTASSIUM 50 MG TAB PO SCH (08:56)
[2016-11-10] MEDS: HYDROCHLOROTHIAZIDE 25 MG TAB PO SCH (08:56)
--- NOTE | 2016-11-10 09:17 | Cardiology Follow-Up ---
Subjective General Date of Service: Nov 10, 2016. Chief Complaint: follow-up chest discomfort headache Pt evaluation today including: conversation w/ patient, physical exam History of Present Illness The patient is a 56 year old female seen in follow-up. EKG this morning reveals normal sinus rhythm at 66 bpm with incomplete right bundle branch block no significant ST changes. Her blood pressures remain above goal. She still notes a vague midline chest discomfort at rest, that has not altered, it is just there and a low level. Allergies Coded Allergies: Aspirin (Verified Allergy, Unknown, 11/08/16) Social History Smoking Status: Never Smoker Hx Tobacco Use In Past Year?: No Hx Alcohol Use - Type And Amou: No Hx Substance Use - Type And Am: No Problem List Medical Problems: (1) Headache Status: Acute (2) Right-sided chest pain Status: Acute (3) Substernal precordial chest pain Status: Acute Physical Exam Vital Signs Last Vital Signs Documentation Date Time Temp Pulse Resp B/P Pulse Ox O2 Delivery O2 Flow Rate FiO2 11/10/16 07:53 36.6 72 18 168/97 95 Room Air 11/08/16 16:21 2.0 Physical Exam Constitutional: Level of Distress: NAD ENMT: normal ENT inspection Neck: supple Lungs: Auscultation: no wheezing, no rales/crackles, no rhonchi Cardiovascular: Heart Auscultation: RRR, no murmurs, no rubs Extremities: no cyanosis, no edema Neurologic: Gait & Station: pertinent finding (no focal deficits) Assessment and Plan Assessment and Plan Impression: 1. Hypertension with hypertensive urgency-blood pressure improved, but not quite at goal 2. Chest discomfort, somewhat atypical for angina 3. Chronic migraine headache syndrome Plan: Increase losartan/HCTZ from 50/12.5 to 100/25 mg. Hold metoprolol for now so that her heart rate is not suppressed which may prevent achieving target heart rate during planned exercise stress testing. Obtain resting echocardiogram today , if no resting wall motion under mount is are present, plan to proceed with exercise stress echocardiogram on . Looking forward, perhaps propranolol may be a good choice in terms of her blood pressure, as it may help with migraine prophylaxis as well. Increase activity as tolerated today, ambulate in hallway. Lovenox as ordered for DVT prophylaxis however patient had refused the last dose. Increase ambulation for prophylaxis. Laboratory Results Last 24 Hours Test 11/10/16 06:00 Sodium Level 143 mmol/L Potassium Level 3.8 mmol/L Chloride Level 107 mmol/L Carbon Dioxide Level 28 mmol/L Anion Gap 8.0 mmol/L Blood Urea Nitrogen 20 mg/dl Creatinine 1.00 mg/dl Est Creatinine Clear Calc Drug Dose 71.6 ml/min Estimated GFR () 73.5 Estimated GFR (Non- 63.4 BUN/Creatinine Ratio 19.9 Random Glucose 90 mg/dl Calcium Level 8.9 mg/dl
--- NOTE | 2016-11-10 10:53 | Progress Note ---
Internal Med Progress Note Date of Service: Nov 10, 2016. Provider Documentation: SUBJECTIVE: Patient is seen and examined at bedside. Reports persistent mild retrosternal chest discomfort. Headache resolved. No other complaints. OBJECTIVE: Vital Signs-as noted below Physical Exam: General Appearance:Moderately built and nourished, no apparent distress Head: normocephalic, Atraumatic Eyes: normal inspection, EOMI, PERRLA Neck: supple, Trachea midline Respiratory/Chest: Normal breath sounds, CTA, No accessory muscle use Cardiovascular: S1, S2, No murmur Abdomen/GI:Soft, Non tender, Bowel sounds present Extremities/Musculoskelatal:normal inspection, chronic ankle edema. Neurologic/Psych:AAOX3, grossly no focal neurological deficits +Right facial droop Skin: normal color, warm Lab data as noted below. ASSESSMENT & PLAN: CHEST PAIN R/o ACS Risk factor: Hypertension Presents with chest pain which improved with nitro tab in ER Likely secondary to hypertensive urgency Troponin: X 3: Negative EKG: no acute ischemic findings CXR:Likely atelectasis vs. pneumonia: Clinically no signs of infection Patient has aspirin allergy PRN nitroglycerin Fasting lipid panel:wnl Appreciate cardiology input Likely stress test tomorrow ECHO today HYPERTENSIVE URGENCY BP elevated to 200s/120s in ER Likely underlying uncontrolled BP Continue Losartan-HCTZ: Increased from 50/12.5 to 100/25 mg. 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 Roque for primary care Likely stress test tomorrow Vital Signs: Date Time Temp Pulse Resp B/P Pulse Ox O2 Delivery O2 Flow Rate FiO2 11/10/16 08:00 95 Room Air 11/10/16 07:53 36.6 72 18 168/97 95 Room Air 11/10/16 05:02 36.5 65 20 146/85 93 Room Air 11/10/16 04:00 Room Air 11/10/16 00:21 36.5 58 20 146/91 94 Room Air 11/10/16 00:00 Room Air 11/09/16 21:02 75 142/86 11/09/16 20:00 Room Air 11/09/16 19:46 36.6 67 20 114/67 92 Room Air 11/09/16 16:30 Room Air 11/09/16 15:45 36.5 71 18 162/103 91 Room Air 11/09/16 12:45 Room Air 11/09/16 12:24 36.7 63 16 153/92 94 Room Air Lab Results: Results Past 24 Hours Test 11/10/16 06:00 Range/Units Sodium Level 143 136-145 mmol/L Potassium Level 3.8 3.5-5.1 mmol/L Chloride Level 107 98-107 mmol/L Carbon Dioxide Level 28 21-32 mmol/L Anion Gap 8.0 3-11 mmol/L Blood Urea Nitrogen 20 7-18 mg/dl Creatinine 1.00 0.60-1.20 mg/dl Est Creatinine Clear Calc Drug Dose 71.6 ml/min Estimated GFR () 73.5 Estimated GFR (Non- 63.4 BUN/Creatinine Ratio 19.9 10-20 Random Glucose 90 70-99 mg/dl Calcium Level 8.9 8.5-10.1 mg/dl
[2016-11-10] MEDS: ENOXAPARIN 40 MG/0.4 ML SYR SC SCH (21:00)
[2016-11-10] MEDS: NORTRIPTYLINE HCL 10 MG CAP PO SCH (21:03)
[2016-11-11] VITALS (8 sets, daily range): BP systolic 110–146; BP diastolic 65–89; PULSE 65–91; TEMP 36.3–36.7; O2SAT 92–97
[2016-11-11 06:20] LABS: HEMATOCRIT 42.5 % (37-47); MEAN CELL VOLUME 83.5 fL (80-100); MEAN CORPUSCULAR HEMOGLOBIN 27.9 pg (25-34); MEAN CORPUSCULAR HGB CONC 33.4 g/dl (32-36); MEAN PLATELET VOLUME 10.8 fL (7.4-10.4); PLATELET COUNT 189 K/uL (130-400); RED BLOOD COUNT 5.09 M/uL (4.2-5.4); WHITE BLOOD COUNT 5.47 K/uL (4.8-10.8)
[2016-11-11 07:06] LABS: CALCIUM 9.2 mg/dl (8.5-10.1); POTASSIUM 3.8 mmol/L (3.5-5.1)
--- NOTE | 2016-11-11 07:46 | ECHOCARDIOGRAM REPORT ---
*NOTICE TO RECEIVING CONSTITUTION PARTY AGENCY This information is strictly Confidential and protected under [place] law. [place] law prohibits you from making any further disclosure of this information unless further disclosure is expressly permitted by the written consent of the person to whom it pertains or is authorized by law. A general authorization for the release of medical or other information is not sufficient for this purpose. Hospital accepts no responsibility if the information is made available to any other person, INCLUDING THE PATIENT. Interpretation Summary * Name: RAJ SHAH Study Date: 11/10/2016 03:30 PM BP: 180/96 mmHg * Patient Location: [facility]\S\[id number] HR: 71 * : 1960 (M/d/yyyy) Gender: Female Height: 65 in * Age: 56 yrs Ethnicity: [place] Weight: 204 lb * Ordering Physician: Arpan Martinez * Performed By: Frannie Armstrong RDCS * * Reason For Study: Chest pain * BSA: 2.0 m2 * The study was technically adequate. * -- Conclusions -- * The left ventricular wall motion is normal. * Left ventricular systolic function is normal. * The qualitative left ventricular ejection fraction = 60-65%. * Grade I diastolic dysfunction, (abnormal relaxation pattern). * There is no significant valvular heart disease. Procedure Details * A complete two-dimensional transthoracic echocardiogram was performed (2D, M-mode, Doppler and color flow Doppler). Left Ventricle * The left ventricle is normal in size. * There is normal left ventricular wall thickness. * Left ventricular systolic function is normal. * Ejection Fraction = 60-65%. * The left ventricular wall motion is normal. Right Ventricle * The right ventricle is normal size. * The right ventricular systolic function is normal as assessed by tricuspid annular plane systolic excursion (TAPSE) (normal >1.5 cm). Atria * The left atrial size is normal. * Right atrial size is normal. * There is no evidence of atrial septal defect, but resolution does not allow assessment for a patent foramen ovale. Mitral Valve * The mitral valve is normal. * There is no mitral valve stenosis. * Significant mitral regurgitation is absent. Tricuspid Valve * The tricuspid valve is normal. * There is no tricuspid stenosis. * Significant tricuspid regurgitation is absent. * Doppler findings do not suggest pulmonary hypertension. Aortic Valve * The aortic valve is trileaflet. * Aortic stenosis is absent. * There is no significant aortic regurgitation. Pulmonic Valve * The pulmonary valve is not well seen, but the Doppler examination is normal without significant regurgitation or stenosis. Great Vessels * The aortic root and proximal ascending aorta are normal sized. Pericardium/Pleural * There is no pericardial effusion. Great Vessels * Normal inferior vena cava diameter and respiratory variation suggests normal central venous pressure. * Normal inferior vena cava size and collapsability with sniff indicates a normal right atrial pressure of 3 mmHg Left Ventricular Diastolic Function * Grade I diastolic dysfunction, (abnormal relaxation pattern). MMode 2D Measurements and Calculations IVSd 1.1 cm LVIDd 3.9 cm LVIDs 2.5 cm LVPWd 10 cm IVS/LVPW 1.1 FS 35.5 % EDV(Teich) 66.2 ml ESV(Teich) 22.8 ml EF(Teich) 65.5 % EDV(cubed) 59.7 ml ESV(cubed) 16.0 ml EF(cubed) 73.1 % LV mass(C)d 129.8 grams LV mass(C)dI 65.1 grams/m\S\2 SV(Teich) 43.4 ml SI(Teich) 21.8 ml/m\S\2 SV(cubed) 43.6 ml SI(cubed) 21.9 ml/m\S\2 Ao root diam 3.4 cm Ao root area 8.8 cm\S\2 ACS 1.9 cm LA dimension 2.4 cm asc Aorta Diam 3.4 cm LA/Ao 0.73 LVOT diam 2.0 cm LVOT area 3.1 cm\S\2 Doppler Measurements and Calculations MV E max damion 72.3 cm/sec MV A max damion 75.0 cm/sec MV E/A 0.96 MV dec time 0.33 sec Ao V2 max 110.6 cm/sec Ao max PG 4.9 mmHg Ao max PG (full) 1.1 mmHg REILLY(V,A) 2.7 cm\S\2 REILLY(V,D) 2.7 cm\S\2 LV V1 max PG 3.8 mmHg LV V1 max 97.1 cm/sec PA V2 max 61.9 cm/sec PA max PG 1.5 mmHg PA acc slope 294.6 cm/sec\S\2 PA acc time 0.16 sec PA pr(Accel) 8.2 mmHg
[2016-11-11] MEDS: HYDROCHLOROTHIAZIDE 25 MG TAB PO SCH (07:51)
[2016-11-11] MEDS: LOSARTAN POTASSIUM 50 MG TAB PO SCH (07:51)
[2016-11-11] MEDS ORDERED: PERFLUTREN LIPID MICROSPHERE (DEFINITY) IV ONE (09:02)
[2016-11-11] MEDS ORDERED: PROPRANOLOL HCL 60 MG LA CAP PO ONE (09:30)
--- NOTE | 2016-11-11 09:31 | Cardiology Follow-Up ---
Subjective General Date of Service: Nov 11, 2016. Chief Complaint: follow-up chest discomfort headache Pt evaluation today including: conversation w/ patient, physical exam History of Present Illness The patient is a 56 year old female seen in follow up prior to / during/ and post exercise stress echocardiogram. Pt described ongoing headache this am (out of proportion to her degree of hypertension), this was typical in character of her chronic headache. Pt with continued vague midline chest discomfort at rest. Allergies Coded Allergies: Aspirin (Verified Allergy, Unknown, 11/08/16) Social History Smoking Status: Never Smoker Hx Tobacco Use In Past Year?: No Hx Alcohol Use - Type And Amou: No Hx Substance Use - Type And Am: No Problem List Medical Problems: (1) Headache Status: Acute (2) Right-sided chest pain Status: Acute (3) Substernal precordial chest pain Status: Acute Physical Exam Vital Signs Last Vital Signs Documentation Date Time Temp Pulse Resp B/P Pulse Ox O2 Delivery O2 Flow Rate FiO2 11/11/16 08:00 Room Air 11/11/16 07:47 36.6 90 18 142/89 97 11/08/16 16:21 2.0 Physical Exam Constitutional: Level of Distress: NAD ENMT: normal ENT inspection Neck: supple Lungs: Auscultation: no wheezing, no rales/crackles, no rhonchi Cardiovascular: Heart Auscultation: RRR, no murmurs, no rubs Extremities: no cyanosis, no edema Neurologic: Gait & Station: pertinent finding (no focal deficits) Assessment and Plan Assessment and Plan Impression: 1. Hypertension with hypertensive urgency-blood pressure improved, but not quite at goal 2. Chest discomfort, somewhat atypical for angina -non ischemic response to stress echocardiogram. Normal stress EKG having achieved target HR, normal rest/ stress echo response, atypical chest pain described that did not change with progressive exercise -deconditioning noted. 3. Chronic migraine headache syndrome Plan: Upon discharge, plan for patient to be on increased losartan dose compared to prehospital: losartan/HCTZ from 50/12.5 increased to 100/25 mg. Start propranolol LA 60 mg daily for HTN, palpitations, migraine prophylaxis Advance diet post stress test. Recommend inpatient or outpatient neurology evaluation for poorly controlled headaches. Laboratory Results Last 24 Hours Test 11/11/16 05:34 White Blood Count 5.47 K/uL Red Blood Count 5.09 M/uL Hemoglobin 14.2 g/dL Hematocrit 42.5 % Mean Corpuscular Volume 83.5 fL Mean Corpuscular Hemoglobin 27.9 pg Mean Corpuscular Hemoglobin Concent 33.4 g/dl RDW Standard Deviation 40.0 fL RDW Coefficient of Variation 13.2 % Platelet Count 189 K/uL Mean Platelet Volume 10.8 fL Sodium Level 141 mmol/L Potassium Level 3.8 mmol/L Chloride Level 103 mmol/L Carbon Dioxide Level 28 mmol/L Anion Gap 10.0 mmol/L Blood Urea Nitrogen 20 mg/dl Creatinine 1.00 mg/dl Est Creatinine Clear Calc Drug Dose 71.6 ml/min Estimated GFR () 73.5 Estimated GFR (Non- 63.4 BUN/Creatinine Ratio 20.0 Random Glucose 89 mg/dl Calcium Level 9.2 mg/dl
[2016-11-11] MEDS: TRAMADOL HCL 50 MG TAB PO PRN (13:29)
--- NOTE | 2016-11-11 14:18 | Progress Note ---
Internal Med Progress Note Date of Service: Nov 11, 2016. Provider Documentation: SUBJECTIVE: Patient is seen and examined at bedside. States having epistaxis and headache is worse this morning . Also had dizziness intermittently. Denies any chest discomfort. No other complaints. OBJECTIVE: Vital Signs-as noted below Physical Exam: General Appearance:Moderately built and nourished, no apparent distress Head: normocephalic, Atraumatic Eyes: normal inspection, EOMI, PERRLA Neck: supple, Trachea midline Respiratory/Chest: Normal breath sounds, CTA, No accessory muscle use Cardiovascular: S1, S2, No murmur Abdomen/GI:Soft, Non tender, Bowel sounds present Extremities/Musculoskelatal:normal inspection, chronic ankle edema. Neurologic/Psych:AAOX3, grossly no focal neurological deficits +Right facial droop Skin: normal color, warm Lab data as noted below. ASSESSMENT & PLAN: CHEST PAIN R/o ACS Risk factor: Hypertension Presents with chest pain which improved with nitro tab in ER Likely secondary to hypertensive urgency Troponin: X 3: Negative EKG: no acute ischemic findings CXR:Likely atelectasis vs. 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 Lovenox SQ discontinued secondary to epistaxis DISPOSITION Follows with Dr. Roque for primary care PROCEDURES: ECHO: * The left ventricular wall motion is normal. * Left ventricular systolic function is normal. * The qualitative left ventricular ejection fraction = 60-65%. * Grade I diastolic dysfunction, (abnormal relaxation pattern). * There is no significant valvular heart disease. Vital Signs: Date Time Temp Pulse Resp B/P Pulse Ox O2 Delivery O2 Flow Rate FiO2 11/11/16 12:00 Room Air 11/11/16 11:36 36.3 91 18 130/78 92 Room Air 11/11/16 08:00 Room Air 11/11/16 07:47 36.6 90 18 142/89 97 Room Air 11/11/16 04:31 Room Air 11/11/16 04:26 36.6 87 16 118/81 93 Room Air 11/10/16 23:30 Room Air 11/10/16 22:51 36.3 77 16 158/97 92 Room Air 11/10/16 20:00 Room Air 11/10/16 19:51 36.3 79 20 152/101 92 Room Air 11/10/16 16:00 Room Air 11/10/16 15:37 36.6 71 18 147/86 93 Room Air Lab Results: Results Past 24 Hours Test 11/11/16 05:34 Range/Units White Blood Count 5.47 4.8-10.8 K/uL Red Blood Count 5.09 4.2-5.4 M/uL Hemoglobin 14.2 12.0-16.0 g/dL Hematocrit 42.5 37-47 % Mean Corpuscular Volume 83.5 80-100 fL Mean Corpuscular Hemoglobin 27.9 25-34 pg Mean Corpuscular Hemoglobin Concent 33.4 32-36 g/dl RDW Standard Deviation 40.0 36.4-46.3 fL RDW Coefficient of Variation 13.2 11.5-14.5 % Platelet Count 189 130-400 K/uL Mean Platelet Volume 10.8 7.4-10.4 fL Sodium Level 141 136-145 mmol/L Potassium Level 3.8 3.5-5.1 mmol/L Chloride Level 103 98-107 mmol/L Carbon Dioxide Level 28 21-32 mmol/L Anion Gap 10.0 3-11 mmol/L Blood Urea Nitrogen 20 7-18 mg/dl Creatinine 1.00 0.60-1.20 mg/dl Est Creatinine Clear Calc Drug Dose 71.6 ml/min Estimated GFR () 73.5 Estimated GFR (Non- 63.4 BUN/Creatinine Ratio 20.0 10-20 Random Glucose 89 70-99 mg/dl Calcium Level 9.2 8.5-10.1 mg/dl
--- NOTE | 2016-11-11 16:19 | Neurology Consultation ---
Neurology Consultation Date of Consultation: Nov 11, 2016. Attending Physician: Barrett Leal MD Primary Care Physician: Brock Roque M.D. Reason for Consultation: migraine headache History of Present Illness Source: patient, spouse Bridgette is a 56 year old female with PMH of HTN and migraine headaches who presents to the ED for chest pain. The chest pain started while she was sitting at work. She described it as vague substernal chest discomfort with radiation to right shoulder blade which resolved spontaneously within a few minutes. she then had hiccups and recurrent similar chest pain also radiating to right shoulder blade and facial flushing. At [facility] she was hypertensive at 170s systolic and was then sent to the ED. She was treated with a Nitrostat tab and is now chest pain free. She developed a headache after nitro which improved with Fentanyl. On arrival her blood pressure was 206/122. She has been taking losartan-HCTZ as directed. She denies vision change, one sided weakness or numbness, SOB, abdominal pain, N,V. Pt denies history of cardiac disorder, HL, DM. She had a TTE and carotid doppler that were normal. she has taken Pamelor 20 mg hs x 2 years and meloxican 15 mg prn for breakthrough headaches. She had an MRI when she started having headaches they have changed in intensity no frequency, she states she has a daily headache and then the migraines are 1 -3 time per month. 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 Past Medical/Surgical History Medical Problems: (1) Headache Status: Acute (2) Right-sided chest pain Status: Acute (3) Substernal precordial chest pain Status: Acute Social History Alcohol Use: none Drug Use: none Marital Status: Housing Status: lives with family Occupation Status: employed Allergies Coded Allergies: Aspirin (Verified Allergy, Unknown, 11/08/16) Current Inpatient Medications Current Inpatient Medications Medications (Trade) Dose Ordered Sig/Di Route Start Time Stop Time Status Last Admin Dose Admin Acetaminophen (Tylenol Tab) 650 mg Q4H PRN PO 11/08/16 18:00 12/08/16 17:59 11/09/16 15:40 650 MG Ondansetron HCl (Zofran Inj) 4 mg Q6H PRN IV 2/17/17 18:00 12/08/16 17:59 Nitroglycerin (Nitrostat Tab) 0.4 mg UD PRN SL 11/08/16 18:00 12/08/16 17:59 Metoclopramide HCl (Reglan Tab) 5 mg DAILY PRN PO 11/08/16 18:00 12/08/16 17:59 Nortriptyline HCl (Pamelor Cap) 20 mg HS PO 11/08/16 21:00 12/08/16 20:59 11/10/16 21:03 20 MG Miscellaneous (Iv Fluids Completed) 1 ea PRN PRN N/A 11/08/16 23:15 11/08/17 23:14 Tramadol HCl (Ultram Tab) 25 mg Q6H PRN PO 11/09/16 20:15 12/09/16 20:14 11/11/16 13:29 25 MG Morphine Sulfate (MoRPHine SULFATE INJ) 4 mg Q6H PRN IV 11/09/16 20:15 11/23/16 20:14 Losartan Potassium (coZAAR TAB) 100 mg QAM PO 11/10/16 09:00 12/10/16 08:59 11/11/16 07:51 100 MG Hydrochlorothiazide (Hydrochlorothiazide Tab) 25 mg QAM PO 11/10/16 09:00 12/10/16 08:59 11/11/16 07:51 25 MG Propranolol HCl (Inderal [place]) 60 mg QAM PO 11/12/16 09:00 12/12/16 08:59 Physical Exam Vital Signs (Past 24 Hrs): Date Time Temp Pulse Resp B/P Pulse Ox O2 Delivery O2 Flow Rate FiO2 11/11/16 15:39 36.3 73 18 146/87 93 Room Air 11/11/16 12:00 Room Air 11/11/16 11:36 36.3 91 18 130/78 92 Room Air 11/11/16 08:00 Room Air 11/11/16 07:47 36.6 90 18 142/89 97 Room Air 11/11/16 04:31 Room Air 11/11/16 04:26 36.6 87 16 118/81 93 Room Air 11/10/16 23:30 Room Air 11/10/16 22:51 36.3 77 16 158/97 92 Room Air 11/10/16 20:00 Room Air 11/10/16 19:51 36.3 79 20 152/101 92 Room Air 11/10/16 16:00 Room Air Physical Exam: Constitutional: appearance nourished, healthy and normal Ears, Nose, Mouth and Throat: mucous membranes moist, no injection and skin normal, eyes normal Cardiovascular: normal S-1 and S-2 and regular rate and rhythm Respiratory: clear to auscultation (CTA) and no rales, rhonchi or wheeze Musculoskeletal: no peripheral edema and good distal pulses Skin: no stigmata of neurocutaneous disease noted and normal and intact Eyes: extraocular muscles intact (EOMI) and pupils equal, round and reactive to light (PERRL), left eye lid droop NEUROLOGIC EXAMINATION: Mental status: Alert and interactive Oriented to full date and location Oriented to person Speech fluent with no evidence of aphasia Cranial Nerves flattening of right nasolabial fold, unable to fully raise right eye brow Reflexes: Deep tendon reflexes were symmetrical and graded 2/5. Plantar responses were flexor. Sensory: no deficit to cool touch or vibration Coordination: finger to nose without bipass or tremor Gait/Stance: Posture sitting in bed. Motor: Negative for pronator drift of out stretched arms with eyes closed. 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 5/5, hip flex plantar flex ext 5/ 5 bilaterally Laboratory Results Past 24 Hours: 11/11/16 05:34 11/11/16 05:34 Test 11/11/16 05:34 Red Blood Count 5.09 M/uL (4.2-5.4) Mean Corpuscular Volume 83.5 fL (80-100) Mean Corpuscular Hemoglobin 27.9 pg (25-34) Mean Corpuscular Hemoglobin Concent 33.4 g/dl (32-36) RDW Standard Deviation 40.0 fL (36.4-46.3) RDW Coefficient of Variation 13.2 % (11.5-14.5) Mean Platelet Volume 10.8 fL (7.4-10.4) Anion Gap 10.0 mmol/L (3-11) Est Creatinine Clear Calc Drug Dose 71.6 ml/min Estimated GFR () 73.5 Estimated GFR (Non- 63.4 BUN/Creatinine Ratio 20.0 (10-20) Calcium Level 9.2 mg/dl (8.5-10.1) Imaging TTE- The left ventricular wall motion is normal. * Left ventricular systolic function is normal. * The qualitative left ventricular ejection fraction = 60-65%. * Grade I diastolic dysfunction, (abnormal relaxation pattern). * There is no significant valvular heart disease. NO ASD Impression 56 year old with migraine and daily headaches increased with nitro administration Plan 1. cardiac workup and TTE completed 2. avoid narcotics for headache management 3. MRI brain may be needed since headache have changed in frequency since last MRI 4. cardiology started propranolol (Inderal 60 mg) is also a good choice for migraine prevention 5. will increase the nortriptyline 30 mg hs 6. will add mg++ 500 mg daily 7. would stop meloxicam and use Excedrin migraine for PRN would not start triptan due to aura findings return as out patient in about 4-6 weeks for further evaluation-this is not an acute problem need to give changes a chance to work Juliet LIRA-neurology schedule I have seen and discussed above patient with Dr David Merchant, neurology Patient seen and examined and discussed with Juliet benz a flare of longstanding migraine related initially to stress nitrates etc but this has been coming on for several months exam shows only old right bells with synkinesis needs updated mri with contrast, mag oxide inderal as per cardilolgy and up to pamelor to 30 per day will see in six weeks allowing time for the above therapeutic manipulations to either take effect or to fail and the patient will keep a headache diary for review David Merchant MD
[2016-11-11] MEDS ORDERED: NORTRIPTYLINE HCL 10 MG CAP PO SCH (21:00)
--- NOTE | 2016-11-11 21:03 | DIAGNOSTIC IMAGING REPORT ---
Brain MRI WITHOUT CONTRAST HISTORY: Headache INCREASE INTENSITY MIGRAINES TECHNIQUE: Multiplanar multisequence MRI of the brain was performed without the use of contrast. COMPARISON STUDY: None. FINDINGS: There are no areas of restricted diffusion to suggest acute infarction. The midline structures are intact. The paranasal sinuses are clear. The mastoid air cells are clear. The ventricles and sulci are within normal limits for age. There is no mass, hematoma, midline shift. The major vascular flow-voids at the skull base are well maintained. There is suggestion of a possible aneurysm of the tip of the basilar. This measures approximately 3.5 x 4.5 mm. MRA of the [place] is suggested as follow-up. IMPRESSION: 1. 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 MRA of the [place] or CTA of the intracranial vasculature is suggested as follow-up 3. Examination is otherwise negative for age Electronically signed by: Olaf Woodall M.D. 11/11/2016 9:02 PM Dictated Date/Time: 11/11/2016 8:57 PM
[2016-11-12 04:00] VITALS: BP 133/82; PULSE 69; TEMP 36.4; O2SAT 91
[2016-11-12 06:11] LABS: HEMATOCRIT 43.6 % (37-47)
[2016-11-12 06:45] LABS: BUN/CREATININE RATIO 22.8 (10-20); CALCIUM 9.7 mg/dl (8.5-10.1); CREATININE 1.1 mg/dl (0.60-1.20); POTASSIUM 3.7 mmol/L (3.5-5.1)
[2016-11-12 07:19] VITALS: BP 110/73; PULSE 69; TEMP 36.5; O2SAT 93
[2016-11-12] MEDS: LOSARTAN POTASSIUM 50 MG TAB PO SCH (07:54)
[2016-11-12] MEDS: HYDROCHLOROTHIAZIDE 25 MG TAB PO SCH (07:55)
[2016-11-12] MEDS ORDERED: MAGNESIUM OXIDE 400 MG TAB PO SCH (09:00)
[2016-11-12] MEDS ORDERED: PROPRANOLOL HCL 60 MG LA CAP PO SCH (09:00)
[2016-11-12 11:56] VITALS: BP 118/77; PULSE 67; TEMP 36.5; O2SAT 91
--- NOTE | 2016-11-12 12:24 | Progress Note ---
Internal Med Progress Note Date of Service: Nov 12, 2016. Provider Documentation: SUBJECTIVE: Patient is feeling better. Headache, chest pain has resolved Denies any SOB, nausea, vomiting, cough, fever, chills, localized weakness, numbness OBJECTIVE: Vital Signs-as noted below Exam: General Appearance: Moderately built and nourished, no apparent distress Head: normocephalic, Atraumatic Neck: supple, Trachea midline Respiratory/Chest: Normal breath sounds, No accessory muscle use Cardiovascular: S1, S2, No murmur Abdomen/GI:Soft, Non tender, Bowel sounds present Extremities/Musculoskelatal:normal inspection, chronic ankle edema. Neurologic/Psych:AAOX3, grossly no focal neurological deficits +Right facial droop Lab data as noted below. ASSESSMENT & PLAN: ASSESSMENT & PLAN: CHEST PAIN, ATYPICAL, Acute ischemia ruled out Risk factor: Hypertension Likely secondary to hypertensive urgency -EKG- no acute ischemic changes, Troponin: X 3: Negative , Stress echo- negative for ischemia -Work up- CXR:Likely atelectasis vs. pneumonia: Clinically no signs of infection ; Lipin panel- WNL HYPERTENSIVE URGENCY BP elevated to 200s/120s in ER Likely underlying uncontrolled BP -Low salt diet -Increased losartan/HCTZ from 50/12.5 to 100/25 mg for better BP control. 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 Lovenox SQ discontinued secondary to epistaxis DISPOSITION Follows with Dr. Roque for primary care Okay to discharge after MRA head./neurology evaluation Vital Signs: Date Time Temp Pulse Resp B/P Pulse Ox O2 Delivery O2 Flow Rate FiO2 11/12/16 11:56 36.5 67 22 118/77 91 Room Air 11/12/16 08:10 Room Air 11/12/16 07:19 36.5 69 16 110/73 93 Room Air 11/12/16 04:00 Room Air 11/12/16 04:00 36.4 69 16 133/82 91 Room Air 11/12/16 00:00 Room Air 11/11/16 23:12 36.6 66 18 126/87 97 Room Air 11/11/16 20:00 93 Room Air 11/11/16 19:14 36.7 65 18 110/65 96 Room Air 11/11/16 16:00 93 Room Air 11/11/16 15:39 36.3 73 18 146/87 93 Room Air Lab Results: Results Past 24 Hours Test 11/12/16 05:25 Range/Units Hemoglobin 14.3 12.0-16.0 g/dL Hematocrit 43.6 37-47 % Sodium Level 140 136-145 mmol/L Potassium Level 3.7 3.5-5.1 mmol/L Chloride Level 102 98-107 mmol/L Carbon Dioxide Level 28 21-32 mmol/L Anion Gap 10.0 3-11 mmol/L Blood Urea Nitrogen 25 7-18 mg/dl Creatinine 1.10 0.60-1.20 mg/dl Est Creatinine Clear Calc Drug Dose 64.5 ml/min Estimated GFR () 65.5 Estimated GFR (Non- 56.5 BUN/Creatinine Ratio 22.8 10-20 Random Glucose 93 70-99 mg/dl Calcium Level 9.7 8.5-10.1 mg/dl
--- NOTE | 2016-11-12 13:23 | DIAGNOSTIC IMAGING REPORT ---
Brain MRA HISTORY: Aneurysm Abnormal MRI brain -possible aneurysm evaluation TECHNIQUE: 3-D [id number] MRA of the brain was performed without contrast. COMPARISON STUDY: MRI dated 11/11/2016 FINDINGS: Visualized intracranial internal carotid arteries, distal vertebral arteries, and basilar artery are widely patent. There is no significant stenosis, occlusion, or aneurysm seen within the bilateral ACAs, MCAs, or thermocouple tester. The suspected aneurysm on the patient's prior MRI appears to relate to a slight degree of atelectatic change at the tip basilar combine with surrounding vascular tortuosity. 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 IMPRESSION: No significant stenosis, occlusion, or aneurysm within the [place] of [place]. The tip of the basilar finding as described on the prior MRI exam appears to relate to vascular overlap artifact Electronically signed by: Olaf Woodall M.D. 11/12/2016 1:22 PM Dictated Date/Time: 11/12/2016 1:16 PM
[2016-11-12 15:21] VITALS: BP 140/89; PULSE 67; TEMP 36.8; O2SAT 93
[2016-11-12] MEDS ORDERED: NORT10CA4 PO (16:15)
[2016-11-12] MEDS ORDERED: INDSR60 PO (16:15)
[2016-11-12] MEDS ORDERED: HYZ/10015 PO (16:15)
[2016-11-12] MEDS ORDERED: MGNO400 PO (16:15)
--- NOTE | 2016-11-12 16:20 | Discharge Instructions ---
Discharge Instructions Admission Reason for Admission: Chest Pain, High Blood Pressure, Referred By Doc Discharge Discharge Diagnosis / Problem: 1. Migraine headache 2. Chest pain, acute ischemia ruled out Discharge Goals Goal(s): Diagnostic testing, Therapeutic intervention Activity Recommendations Activity Limitations: resume your previous activity . Instructions / Follow-Up Instructions / Follow-Up MEDICATION CHANGES : 1. Increase losartan/HCTZ (Hyzaar) to 100/25 mg from 50/12.5 mg daily 2. Nortriptyline increased to 30 mg from 20 mg daily 3. Magnesium 400 mg daily started for migraine 4. Propranolol 60 mg daily started for BP/Migraine prophylaxis FOLLOW UP 1. Follow up with PCP in 1 week. Will call for appt date/time 2. Follow up with neurology in 6 weeks Current Hospital Diet Patient's current hospital diet: AHA Diet (Heart Healthy) Discharge Diet Recommended Diet: AHA Diet (Heart Healthy), Low Sodium Diet (2gm Na) Pending Studies Studies pending at discharge: no Laboratory Results Lipid Panel Test 11/09/16 05:30 Range/Units Triglycerides Level 109 0-150 mg/dl Cholesterol Level 162 0-200 mg/dl HDL Cholesterol 54 mg/dl Cholesterol/HDL Ratio 3.0 LDL Cholesterol, Calculated 86 mg/dl Medical Emergencies . Who to Call and When: Medical Emergencies: If at any time you feel your situation is an emergency, please call 911 immediately. . Non-Emergent Contact Non-Emergency issues call your: Primary Care Provider . . "Provider Documentation" section prepared by Char Floyd. VTE Core Measure Inpt VTE Proph given/why not?: Michelle Blount, SCD's
--- NOTE | 2016-11-12 16:24 | Discharge Summary ---
Discharge Summary Date of Service Nov 12, 2016. Discharge Summary Admission Date: Nov 08, 2016 at 18:46 Discharge Date: Nov 12, 2016 Discharge Disposition: Home Principal Diagnosis: 1. Migraine headache 2. Chest pain, acute ischemia ruled out 3. Hypertensive urgency Procedures: Tele monitoring Stress Echo CXR EKG- serial Troponin- serial CT head MRI brain MRA head Consultations: Neurology Pending Studies/Follow-Up: Instructions / Follow-Up MEDICATION CHANGES : 1. Increase losartan/HCTZ (Hyzaar) to 100/25 mg from 50/12.5 mg daily 2. Nortriptyline increased to 30 mg from 20 mg daily 3. Magnesium 400 mg daily started for migraine 4. Propranolol 60 mg daily started for BP/Migraine prophylaxis FOLLOW UP 1. Follow up with PCP in 1 week. Will call for appt date/time 2. Follow up with neurology in 6 weeks Medication Reconciliation New Medications: Hctz/Losartan (Hyzaar 25MG/100MG) 1 Ea Tab 1 TAB PO DAILY for 30 Days, #30 TAB 5 Refills Magnesium Oxide (Magnesium-Oxide) 400 Mg Tab 400 MG PO QAM for 30 Days, #30 TAB Nortriptyline HCl (Nortriptyline HCl) 10 Mg Cap 30 MG PO HS for 30 Days, #30 CAP Propranolol HCl (Propranolol HCl ER) 60 Mg Cap 60 MG PO QAM for 30 Days, #30 CAP Continued Medications: Meloxicam (Meloxicam) 15 Mg Tab 15 MG PO DAILY Metoclopramide Hcl (Reglan) 5 Mg Tab 5 MG PO DAILY PRN for PRN, TAB Take 5 mg PO when aura of migraine starts to prevent headache. Discontinued Medications: Losartan Potassium & Hydrochlo (Hyzaar) 1 Tab Tab 1 TAB PO DAILY, TAB 3 Refills 50/12.5MG Nortriptyline (Pamelor) 10 Mg Cap 20 MG PO HS, CAP Admission Information HPI (per Admitting provider): This is a 56 year old female with PMH of HTN and migraine headaches who presents to the ED for chest pain. Patient states chest pain started 4 days ago while sitting at work. She reports vague substernal chest discomfort with radiation to right shoulder blade. The pain resolved spontaneously within a few minutes. Then today around 10 am patient developed hiccups and recurrent similar chest pain also radiating to right shoulder blade. With this episode she had facial flushing. The chest pain was constant but gradually improving for a few hours. The pain was not related to exertion or position. She was seen at [facility], was found to be hypertensive to 170s systolic, and was sent to the ER. She was treated with a Nitrostat tab and is now chest pain free. She developed headache after nitro which improved with Fentanyl. On arrival to the ER her BP was high as 206/122. Nitro tab was given with improvement to 140s-> 170s. Pt states her BP runs 150s systolic at wellness checks at work every 2 wks. In clinic in February 2016 her BP was 160s systolic. She has been compliant with losartan-HCTZ which she took this morning. Pt reports occasional palpitations but did not experience them today. She denies diaphoresis, dizziness, vision change, acute focal weakness or numbness, URI, cough, SOB, reflux, abdominal pain, nausea, vomiting, edema, calf pain, anxiety , heavy lifting. Pt denies history of cardiac disorder, HL, DM. She does not recall having an echo or stress test in the past. She admits to eating fast foods but does not add salt when cooking. No recent travel. Physical Exam (per Admitting): General Appearance: WD/WN, no apparent distress, + pertinent finding (alert cooperative 56 y/o female) Head: normocephalic, atraumatic Eyes: normal inspection, PERRL, EOMI ENT: hearing grossly normal, pharynx normal Neck: supple, no JVD, trachea midline Respiratory/Chest: chest non-tender, lungs clear, normal breath sounds, no respiratory distress, no accessory muscle use Cardiovascular: regular rate, rhythm, no murmur, normal peripheral pulses Abdomen/GI: normal bowel sounds, non tender, soft Extremities/Musculoskelatal: no calf tenderness, normal capillary refill, + pertinent finding (trace swelling of bilateral ankles- chronic per patient) Neurologic/Psych: alert, normal mood/affect, oriented x 3, + pertinent finding (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 no dysarthria. no motor/ sensory deficit of the extremities.) Skin: normal color, warm/dry, no rash (no rash on the chest) Hospital Course ASSESSMENT & PLAN: CHEST PAIN, ATYPICAL, Acute ischemia ruled out Risk factor: Hypertension Likely secondary to hypertensive urgency -EKG- no acute ischemic changes, Troponin: X 3: Negative , Stress echo- negative for ischemia -Work up- CXR:Likely atelectasis vs. pneumonia: Clinically no signs of infection ; Lipin panel- WNL HYPERTENSIVE URGENCY BP elevated to 200s/120s in ER Likely underlying uncontrolled BP -Low salt diet -Increased losartan/HCTZ from 50/12.5 to 100/25 mg for better BP control. 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 Lovenox SQ discontinued secondary to epistaxis DISPOSITION Follows with Dr. Roque for primary care Okay to discharge today. Cleared by neurology for discharge Total time spent on discharge = This includes examination of the patient, discharge planning, medication reconciliation, and communication with other providers. Discharge Instructions Discharge Diagnosis / Problem: 1. Migraine headache 2. Chest pain, acute ischemia ruled out Discharge Goals Goal(s): Diagnostic testing, Therapeutic intervention Activity Recommendations Activity Limitations: resume your previous activity . Instructions / Follow-Up Instructions / Follow-Up MEDICATION CHANGES : 1. Increase losartan/HCTZ (Hyzaar) to 100/25 mg from 50/12.5 mg daily 2. Nortriptyline increased to 30 mg from 20 mg daily 3. Magnesium 400 mg daily started for migraine 4. Propranolol 60 mg daily started for BP/Migraine prophylaxis FOLLOW UP 1. Follow up with PCP in 1 week. Will call for appt date/time 2. Follow up with neurology in 6 weeks Current Hospital Diet Patient's current hospital diet: AHA Diet (Heart Healthy) Discharge Diet Recommended Diet: AHA Diet (Heart Healthy), Low Sodium Diet (2gm Na) Pending Studies Studies pending at discharge: no Laboratory Results Lipid Panel Test 11/09/16 05:30 Range/Units Triglycerides Level 109 0-150 mg/dl Cholesterol Level 162 0-200 mg/dl HDL Cholesterol 54 mg/dl Cholesterol/HDL Ratio 3.0 LDL Cholesterol, Calculated 86 mg/dl Medical Emergencies . Who to Call and When: Medical Emergencies: If at any time you feel your situation is an emergency, please call 911 immediately. . Non-Emergent Contact Non-Emergency issues call your: Primary Care Provider . . "Provider Documentation" section prepared by Char Floyd. VTE Core Measure Inpt VTE Proph given/why not?: Michelle Blount, SCD's
--- NOTE | 2016-11-12 16:31 | PROGRESS NOTE ---
DATE: 11/12/2016 DATE: 11/12/2016. Bridgette's headache is a little better today. She is in a dark room but she claims this is because she always has some photosensitivity and when she has been out in the [place] her headache has not been worse nor has it been positional. Overall, she is improving. MRI showed a questionable aneurysm in the basilar tip. This has been negated by negative MRA which is interpreted as showing only overlapping vessels so at least this concern is off the table and I relayed this information to her today. I discussed the case with Dr. Floyd. We are going to discharge her today on the increased Pamelor, the beta gagandeep, the magnesium oxide 400 mg and she is to keep track of the frequency, severity and nature of her headaches until we see her again in 6 weeks in clinic. 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
[2016-11-12 16:34] VITALS: BP 140/89; PULSE 67; TEMP 36.8; O2SAT 93
== END 2016-11-12 17:56 | disposition home or self-care (01) ==
LOC: ENRESERVDT → ENRESERVTM → C.EDB 13:17 → C.MED 18:46 → CANBEDREQ 11-12 14:54
PROVIDERS: ADMIT Hospitalist; ATTEND Internal Medicine
DX: R07.89 Other chest pain (principal); I10 Essential (primary) hypertension; R29.810 Facial weakness; G43.909 Migraine, unspecified, not intractable, without status migrainosus; R04.0 Epistaxis; M19.90 Unspecified osteoarthritis, unspecified site; Z83.3 Family history of diabetes mellitus; Z82.49 Family history of ischemic heart disease and other diseases of the circulatory system; Z82.3 Family history of stroke